=== PATIENT | male | born 1985 | race Two or more races ===

== ENCOUNTER 2020-10-11 12:48 | Emergency (ER) | payer MEDICAID, OTHER ==
[~2020-10-11] VITALS: Ht 175.3 cm; Wt 68.0 kg
[2020-10-11 13:10] VITALS: BP 127/89
== END 2020-10-11 13:29 | disposition left against medical advice (07) ==
LOC: EDBD 12:48 → ER 12:48
DX: T40.1X1A Poisoning by heroin, accidental (unintentional), initial encounter (principal); F17.210 Nicotine dependence, cigarettes, uncomplicated; F12.10 Cannabis abuse, uncomplicated; F15.10 Other stimulant abuse, uncomplicated; F11.10 Opioid abuse, uncomplicated; Z59.0 Homelessness; Y92.89 Other specified places as the place of occurrence of the external cause